=== PATIENT | male | born 1990 | race Caucasian/White ===

== ENCOUNTER 2018-04-06 19:49 | Emergency (ER) | payer OTHER ==
[~2018-04-06] VITALS: Ht 170.2 cm; Wt 72.6 kg
[2018-04-06 20:31] VITALS: BP 138/93
== END 2018-04-06 21:09 | disposition home or self-care (01) ==
LOC: ER 19:57
DX: S70.11XA Contusion of right thigh, initial encounter (principal); S80.01XA Contusion of right knee, initial encounter; F12.90 Cannabis use, unspecified, uncomplicated; J45.909 Unspecified asthma, uncomplicated; Z90.89 Acquired absence of other organs; X58.XXXA Exposure to other specified factors, initial encounter; Y93.89 Activity, other specified; Y92.89 Other specified places as the place of occurrence of the external cause; Y99.8 Other external cause status
CPT/HCPCS: A4606; Z7610

== ENCOUNTER 2018-05-15 09:13 | Emergency (ER) | payer OTHER ==
[~2018-05-15] VITALS: Ht 170.2 cm; Wt 72.6 kg
--- NOTE | 2018-05-15 09:24 | NUR ---
patient came in due to dog bite, pain level 6/10, per patient it hurts when he walk. kept comfrotable. will continue to monitor accordingly.
[2018-05-15 09:44] VITALS: BP 115/71
== END 2018-05-15 09:45 | disposition home or self-care (01) ==
LOC: ER 09:17
DX: S80.211A Abrasion, right knee, initial encounter (principal); J45.909 Unspecified asthma, uncomplicated; Z90.89 Acquired absence of other organs; W54.0XXA Bitten by dog, initial encounter; Y93.89 Activity, other specified; Y92.89 Other specified places as the place of occurrence of the external cause; Y99.8 Other external cause status

== ENCOUNTER 2018-05-29 19:53 | Emergency (ER) | payer OTHER ==
[~2018-05-29] VITALS: Ht 170.2 cm; Wt 77.6 kg
[2018-05-29 21:02] VITALS: BP 140/88
--- NOTE | 2018-05-29 21:03 | NUR ---
PT BIBS. COMP OF "+N/V AND DIARRHEA AFTER EATING SOME FRIES" -SOB. -DIZZINESS -ACUTE DISTRESS. AWAITING EVAL.
== END 2018-05-29 21:20 | disposition home or self-care (01) ==
LOC: ER 19:59
DX: R11.2 Nausea with vomiting, unspecified (principal); R19.7 Diarrhea, unspecified; R51 Headache; J45.909 Unspecified asthma, uncomplicated; Z90.89 Acquired absence of other organs

== ENCOUNTER 2019-05-14 14:56 | Emergency (ER) | payer SELFPAY ==
[~2019-05-14] VITALS: Ht 170.2 cm; Wt 72.6 kg
--- NOTE | 2019-05-14 15:18 | NUR ---
Note undone in EDM - 05/14/19 at 1520 by EVICTOR pt [email or web address]. ambulatory. pt c/o L sided chest pain, diffused tightness, since yesterday s/p meth use. -radiating. Pt placed on monitor and pulse ox. No acute distress noted. vss. Awaiting MD for eval.
[2019-05-14 15:30] VITALS: BP 115/77
[2019-05-14] MEDS ORDERED: IBUPROFEN 400 MG TABLET ONE (15:55)
[2019-05-14] MEDS ORDERED: IBUPROFEN 400 MG TABLET PO ONE (16:00)
== END 2019-05-14 16:02 | disposition home or self-care (01) ==
LOC: ER 14:59
DX: M25.512 Pain in left shoulder (principal); J45.909 Unspecified asthma, uncomplicated; Z90.89 Acquired absence of other organs

== ENCOUNTER 2019-12-11 00:17 | Emergency (ER) | payer SELFPAY ==
[~2019-12-11] VITALS: Ht 170.2 cm; Wt 68.0 kg
[2019-12-11 00:21] VITALS: BP 138/96
--- NOTE | 2019-12-11 00:51 | NUR ---
AT BED SIDE
== END 2019-12-11 01:28 | disposition home or self-care (01) ==
LOC: ER 00:18
DX: F41.9 Anxiety disorder, unspecified (principal); J45.909 Unspecified asthma, uncomplicated; F17.200 Nicotine dependence, unspecified, uncomplicated; Z90.89 Acquired absence of other organs

== ENCOUNTER 2021-08-21 12:59 | Emergency (ER) | payer MEDICAID, OTHER ==
[~2021-08-21] VITALS: Ht 170.2 cm; Wt 79.4 kg
--- NOTE | 2021-08-21 13:09 | NUR ---
TO ER BED 1. BIBS C/O DYSURIA AND NOTICED YELLOW DISCHARGE STARTED THIS MORNING. PT DENIES ANY PAIN, NAUSEA, VOMITTING.
--- NOTE | 2021-08-21 13:43 | NUR ---
URINE COLLECTED AND SENT
[2021-08-21 14:22] LABS: BILIRUBIN,URINE NEGATIVE (NEGATIVE); COLOR,URINE YELLOW (YELLOW); LEUKOCYTE ESTERASE ,URINE NEGATIVE (NEGATIVE); NITRITE, URINE NEGATIVE (NEGATIVE); PROTEIN,URINE NEGATIVE (NEGATIVE); UGLUCOSE NEGATIVE (NEGATIVE); UROBILINOGEN,URINE 0.2 EU/dL (0.2)
[2021-08-21] MEDS ORDERED: PHEN-704 PO (14:41)
[2021-08-21] MEDS ORDERED: IBUP-1955 PO (14:42)
[2021-08-21 14:51] VITALS: BP 134/78
--- NOTE | 2021-08-21 14:51 | NUR ---
Patient discharged to home in stable condition. Written and verbal after care instructions given. Patient verbalizes understanding of instruction.
== END 2021-08-21 14:52 | disposition home or self-care (01) ==
LOC: ER 13:02
DX: R30.0 Dysuria (principal); J45.909 Unspecified asthma, uncomplicated; Z87.440 Personal history of urinary (tract) infections; Z90.89 Acquired absence of other organs
CPT/HCPCS: 87491; 87591

== ENCOUNTER 2021-11-02 14:31 | Emergency (ER) | payer OTHER ==
[~2021-11-02] VITALS: Ht 170.2 cm; Wt 79.4 kg
[~2021-11-02 14:31] MED LIST: IBUP-1955 PO; PHEN-704 PO
[2021-11-02 14:37] VITALS: BP 128/86
--- NOTE | 2021-11-02 14:37 | NUR ---
BODY PAIN WORST RUE S/P PLAYING BASEBALL YESTERDAY AFTER 12 YEARS TOOK ALIEVE YESTERDAY, NO RELIEF.
[2021-11-02] MEDS ORDERED: CARI350T PO (15:24)
== END 2021-11-02 15:34 | disposition home or self-care (01) ==
LOC: ER 14:49
DX: M77.11 Lateral epicondylitis, right elbow (principal); J45.909 Unspecified asthma, uncomplicated; F90.9 Attention-deficit hyperactivity disorder, unspecified type; F17.200 Nicotine dependence, unspecified, uncomplicated; Z90.89 Acquired absence of other organs; Z79.899 Other long term (current) drug therapy
CPT/HCPCS: 73080-TC

== ENCOUNTER 2021-12-22 12:40 | Emergency (ER) | payer OTHER ==
[~2021-12-22] VITALS: Ht 170.2 cm; Wt 77.1 kg
[~2021-12-22 12:40] MED LIST changes: +CARI350T PO
[2021-12-22] MEDS ORDERED: KETOROLAC TROMETHAMINE 15 MG/ML VIAL ONE (13:24)
[2021-12-22] MEDS ORDERED: ONDANSETRON 4 MG TAB.RAPDIS ONE (13:25)
[2021-12-22] MEDS ORDERED: ONDANSETRON 4 MG TAB.RAPDIS PO ONE (13:30)
[2021-12-22] MEDS ORDERED: KETOROLAC TROMETHAMINE INJ 60 MG/2 ML VIAL IM ONE (13:30)
[2021-12-22 13:41] VITALS: BP 120/76
--- NOTE | 2021-12-22 13:41 | NUR ---
Patient discharged to home in stable condition. Written and verbal after care instructions given. Patient verbalizes understanding of instruction.
== END 2021-12-22 13:41 | disposition home or self-care (01) ==
LOC: ER 12:43
DX: G43.109 Migraine with aura, not intractable, without status migrainosus (principal); J45.909 Unspecified asthma, uncomplicated; F90.9 Attention-deficit hyperactivity disorder, unspecified type; Z90.89 Acquired absence of other organs; Z79.899 Other long term (current) drug therapy
CPT/HCPCS: 99283; 96372; Q0162; J1885